=== PATIENT | female | born 1950 | race Caucasian/White ===

== ENCOUNTER 2017-09-22 19:57 | Emergency (ER) | payer MEDICARE, MEDICAID ==
[~2017-09-22] VITALS: Ht 162.6 cm; Wt 71.4 kg
[~2017-09-22 19:57] MED LIST: AMLO10TA PO; ASPI-1264 PO; ATOR20TA66 PO; COU7.5T PO; CYCL-145 PO; CYCL1DRO EACHEYE; DOCU100C40 PO; DOCU100C41 PO; ENOX80SY7 SUBCUT; GABA800T PO; HYDR-565 PO; IRBE150T51 PO; LACT1CAP65 PO; MULT-342 PO; OMEP-50 PO
[2017-09-22] MEDS ORDERED: amLODIPine 5mg tablet PO ONE ×2 (20:35→21:45)
[2017-09-22 20:49] LABS: ALANINE AMINOTRANSFERASE 16 U/L (12-78); ALBUMIN 3.9 G/DL (3.4-5.0); ALKALINE PHOSPHATASE 170 IU/L (46-116); ANION GAP 11 (8-16); ASPARTATE AMINO TRANSFERASE 15 U/L (10-37); BILIRUBIN,TOTAL 0.4 MG/DL (0.1-1.0); BLOOD UREA NITROGEN 19 MG/DL (7-18); BUN/CREATININE RATIO 20.4 (6.6-38.0); CALCIUM 9.1 MG/DL (8.5-10.1); CHLORIDE 104 MMOL/L (99-107); CREATININE 0.93 MG/DL (0.40-0.90); GLUCOSE 121 MG/DL (70-104); POTASSIUM 3.7 MMOL/L (3.5-5.1); SODIUM 138 MMOL/L (135-145); TOTAL CARBON DIOXIDE 23.2 MMOL/L (24-32); TOTAL PROTEIN 7.7 G/DL (6.4-8.2); eGFR 61 ML/MIN
[2017-09-22 21:04] LABS: BASOPHILS % (AUTO) 0.4 % (0-1); EOSINOPHILS # (AUTO) 0.2 X10'3 (0-0.9); EOSINOPHILS % (AUTO) 2.7 % (0-6); HEMATOCRIT 44.1 % (35.0-45.0); HEMOGLOBIN 15.3 g/dl (12.0-16.0); LYMPHOCYTES # (AUTO) 1.3 X10'3 (1.1-4.8); LYMPHOCYTES % (AUTO) 19.4 % (21-51); MEAN CORPUSCULAR HEMOGLOBIN 31.2 PG (27.0-31.0); MEAN CORPUSCULAR HGB CONC 34.6 % (33.0-36.5); MEAN CORPUSCULAR VOLUME 90.3 FL (78-98); MEAN PLATELET VOLUME 7.9 FL (7.4-10.4); MONOCYTES # (AUTO) 0.6 X10'3 (0-0.9); MONOCYTES % (AUTO) 8.2 % (2-12); NEUTROPHILS # (AUTO) 4.8 X10'3 (1.8-7.7); NEUTROPHILS % (AUTO) 69.3 % (42-75); PLATELET COUNT 314 X10'3 (140-440); RED BLOOD COUNT 4.88 X10'6 (4.20-5.60); RED CELL DISTRIBUTION WIDTH 12.9 % (11.5-14.5); WHITE BLOOD COUNT 6.9 X10'3 (4.5-11.0)
[2017-09-22] MEDS ORDERED: AMLO10TA4 PO (21:44)
[2017-09-22 22:03] VITALS: BP 160/76
[2017-09-22] MEDS ORDERED: hyDRALAzine 10mg tablet PO SCH (22:30)
== END 2017-09-22 22:46 | disposition home or self-care (01) ==
LOC: ER 19:58
DX: I10 Essential (primary) hypertension (principal); J44.9 Chronic obstructive pulmonary disease, unspecified; K21.9 Gastro-esophageal reflux disease without esophagitis; M19.90 Unspecified osteoarthritis, unspecified site; G89.29 Other chronic pain; Z86.718 Personal history of other venous thrombosis and embolism; Z86.73 Personal history of transient ischemic attack (TIA), and cerebral infarction without residual deficits; Z90.49 Acquired absence of other specified parts of digestive tract; Z60.2 Problems related to living alone; Z98.890 Other specified postprocedural states; Z88.2 Allergy status to sulfonamides; Z79.82 Long term (current) use of aspirin; Z79.899 Other long term (current) drug therapy
CPT/HCPCS: 36415; 71045; 80053; 83880; 84484; 85025; 93005; 99285

== ENCOUNTER 2021-01-04 07:33 | Inpatient (IN) | payer MEDICARE, OTHER ==
[~2021-01-04] VITALS: Ht 157.5 cm; Wt 66.4 kg
[~2021-01-04 07:33] MED LIST changes: -AMLO10TA PO; -ASPI-1264 PO; -ATOR20TA66 PO; +ATOR40TA72 PO; +CLON1PAT16 TOP; -COU7.5T PO; -CYCL-145 PO; -CYCL1DRO EACHEYE; -DOCU100C40 PO; -DOCU100C41 PO; -ENOX80SY7 SUBCUT; -GABA800T PO; +HYDR-4070 PO; -HYDR-565 PO; -IRBE150T51 PO; -LACT1CAP65 PO; +METO200T49 PO; +MINO2.5T19 PO; +MONT10TA32 PO; -MULT-342 PO; +NOR5T PO; -OMEP-50 PO; +PANT40TA54 PO; +PRED20TA PO; +SUCR1TAB34 PO; +[UNRECOGNIZED DRUG - OTHER] PO
[2021-01-04] MEDS ORDERED: normal saline 1000ml 1,000 ML IV ONE (07:55)
[2021-01-04] MEDS ORDERED: morphine 4 MG/ML inj SYRINge IV ONE ×2 (07:55→12:00)
[2021-01-04] MEDS ORDERED: ondansetron/PF 4mg/2ml inj IV ONE (07:55)
[2021-01-04 07:57] LABS: BASOPHILS % (AUTO) 0.7 % (0-1); EOSINOPHILS # (AUTO) 0.1 X10'3 (0-0.9); EOSINOPHILS % (AUTO) 2.9 % (0-6); HEMATOCRIT 22.7 % (35.0-45.0); HEMOGLOBIN 7.6 g/dl (12.0-16.0); LYMPHOCYTES # (AUTO) 0.4 X10'3 (1.1-4.8); LYMPHOCYTES % (AUTO) 9.9 % (21-51); MEAN CORPUSCULAR HEMOGLOBIN 29.2 PG (27.0-31.0); MEAN CORPUSCULAR HGB CONC 33.4 g/dL (33.0-36.5); MEAN CORPUSCULAR VOLUME 87.4 FL (78-98); MEAN PLATELET VOLUME 7.3 FL (7.4-10.4); MONOCYTES # (AUTO) 0.6 X10'3 (0-0.9); MONOCYTES % (AUTO) 14.9 % (2-12); NEUTROPHILS # (AUTO) 2.8 X10'3 (1.8-7.7); NEUTROPHILS % (AUTO) 71.6 % (42-75); PLATELET COUNT 388 X10'3 (140-440); WHITE BLOOD COUNT 3.9 X10'3 (4.5-11.0)
[2021-01-04 08:19] LABS: ALANINE AMINOTRANSFERASE 12 U/L (12-78); ALBUMIN 2.6 G/DL (3.4-5.0); ALBUMIN/GLOBULIN RATIO 0.8 (1.1-1.5); ALKALINE PHOSPHATASE 113 IU/L (46-116); ANION GAP 9 (8-16); ASPARTATE AMINO TRANSFERASE 16 U/L (10-37); BILIRUBIN,TOTAL 0.5 MG/DL (0.1-1.0); BLOOD UREA NITROGEN 23 MG/DL (7-18); BUN/CREATININE RATIO 12.4 (6.6-38.0); CALCIUM 7.8 MG/DL (8.5-10.1); CHLORIDE 109 MMOL/L (99-107); CREATININE 1.85 MG/DL (0.40-0.90); GLUCOSE 96 MG/DL (70-104); POTASSIUM 3.1 MMOL/L (3.5-5.1); SODIUM 143 MMOL/L (135-145); TOTAL CARBON DIOXIDE 24.8 MMOL/L (24-32); TOTAL PROTEIN 5.9 G/DL (6.4-8.2); eGFR 27 ML/MIN
[2021-01-04 08:23] LABS: LIPASE 185 U/L (73-393); TROPONIN I 0.08 NG/ML (0.0-0.05)
[2021-01-04 08:35] LABS: CLARITY,URINE SLIGHTLY CLOUDY (Clear); COLOR,URINE YELLOW (Yellow); GLUCOSE, URINE NEGATIVE (Neg); KETONES,URINE NEGATIVE (Neg); LEUKOCYTE ESTERASE ,URINE NEGATIVE (Neg); NITRITES, URINE NEGATIVE (Neg); OCCULT BLOOD,URINE NEGATIVE (Neg); PH,URINE 6.5 (4.8-8.0); PROTEIN,URINE 100 mg/dl (Neg); UROBILINOGEN,URINE 0.2 E.U/dL (0.2-1.0)
[2021-01-04] MEDS ORDERED: pantoprazole 40 MG vial IV ONE (08:40)
[2021-01-04] MEDS ORDERED: famotidine/PF 10 mg/ml inj IV ONE (08:40)
[2021-01-04] MEDS ORDERED: LIDOcaine Viscous 15ml cup MM ONE (08:45)
[2021-01-04] MEDS ORDERED: mag hydrox/Alum hydrox/simeth 30ml oral suspension PO ONE (08:45)
[2021-01-04 08:59] LABS: UA COLLECTION TYPE STRAIGHT CATH
[2021-01-04 09:50] LABS: BACTERIA,URINE FEW /HPF (Neg)
[2021-01-04 09:51] LABS: RBC,URINE 0-2 /HPF (0-2); SQUAMOUS EPITHELIAL CELL,UR MODERATE /LPF (FEW); WBC,URINE 0-4 /HPF (0-4)
[2021-01-04] MEDS ORDERED: labetalol 20mg/4ml (5mg/ml) syringe IV ONE (10:35)
[2021-01-04] MEDS ORDERED: furosemide 10 MG/1 ML 10ml inj IV ONE (11:00)
[2021-01-04] MEDS ORDERED: hyDRALAzine 10mg tablet PO ONE (11:20)
[2021-01-04] MEDS ORDERED: minoxidil 2.5mg tablet PO ONE (11:20)
[2021-01-04] MEDS ORDERED: potassium Cl 20 mEq SR tablet PO STA (12:08)
[2021-01-04] MEDS ORDERED: hydrALAZINE 20mg/ml inj. IV ONE (12:10)
--- NOTE | 2021-01-04 12:31 | NUR ---
PURE WICK PLACED AT THIS TIME FOR PATIENT COMFORT/CONVENIENCE.
[2021-01-04] MEDS ORDERED: SERT-433 PO (13:04)
[2021-01-04] MEDS ORDERED: SUCR1TAB PO (13:04)
[2021-01-04] MEDS ORDERED: LEVO50TA8 PO (13:04)
[2021-01-04] MEDS ORDERED: MONT10TA32 PO (13:04)
[2021-01-04] MEDS ORDERED: PANT-47 PO (13:04)
[2021-01-04] MEDS ORDERED: magnesium Cl slow-release 64mg tablet PO PRN (14:15)
[2021-01-04] MEDS ORDERED: bisacodyl 10mg suppository rectal RC PRN (14:15)
[2021-01-04] MEDS ORDERED: magnesium 4gm in 100ml NS 100 ML IV PRN (14:15)
[2021-01-04] MEDS ORDERED: acetaminophen 650mg rectal suppository RC PRN (14:15)
[2021-01-04] MEDS ORDERED: potassium Cl 20 mEq SR tablet PO PRN (14:15)
[2021-01-04] MEDS ORDERED: ondansetron/PF 4mg/2ml inj IV PRN (14:15)
[2021-01-04] MEDS: normal saline 1000ml 1,000 ML IV SCH (14:15)
[2021-01-04] MEDS ORDERED: magnesium 2GM in 50ml NS 50 ML IV PRN (14:15)
[2021-01-04] MEDS ORDERED: potassium Cl 40MEQ/1/2NS 520ml 520 ML IV PRN ×2 (14:15)
[2021-01-04] MEDS ORDERED: acetaminophen 325mg tablet PO PRN ×2 (14:15)
[2021-01-04] MEDS ORDERED: magnesium hydroxide 30ml (MOM) UD suspension PO PRN (14:15)
[2021-01-04] MEDS ORDERED: mag hydrox/Alum hydrox/simeth 30ml oral suspension PO PRN (14:15)
[2021-01-04] MEDS ORDERED: HYDROcodone/acetaminophen 10/325mg tab PO PRN (14:15)
[2021-01-04 14:46] LABS: HEMOGLOBIN A1C 4.5 % (4.5-6.2)
[2021-01-04] MEDS: ipratropium/albuterol 3ml nebule NEB SCH ×3 (15:00→23:00)
[2021-01-04] MEDS: hydrALAZINE 20mg/ml inj. IV PRN ×3 (16:42→20:15)
[2021-01-04] MEDS: sucralfate 1 gm tablet PO SCH ×2 (17:22→20:08)
[2021-01-04] MEDS: hydrALAZINE 25 MG tablet PO SCH (17:22)
[2021-01-04] MEDS ORDERED: NEO/5DRO7 EACHEYE (18:33)
--- NOTE | 2021-01-04 18:51 | NUR ---
PT SITTING UP IN BED EATING
[2021-01-04] MEDS: K and/or MAG REPLACEMENT MC SCH (20:00)
[2021-01-04] MEDS: pantoprazole 40 MG vial IV SCH (20:00)
[2021-01-04] MEDS: minoxidil 2.5mg tablet PO SCH ×2 (20:00→22:18)
[2021-01-04] MEDS: docusate sod 100mg capsule PO SCH (20:06)
[2021-01-04] MEDS: furosemide 40mg/4ml inj IV SCH (20:08)
[2021-01-04] MEDS: heparin, porcine 5000 units/ml vial SQ SCH (20:14)
[2021-01-05] VITALS (14 sets, daily range): BP systolic 114–200; BP diastolic 49–88
--- NOTE | 2021-01-05 01:00 | NUR ---
PT REQUESTING TO USE BEDSIDE COMMODE. SHE IS ASSISTED UP WITH NO BOWEL MOVEMENT, PUREWICK OUT AND REPLACED. PT BACK INTO BED IN POSITION OF COMFORT.
[2021-01-05] MEDS: hydrALAZINE 25 MG tablet PO SCH ×5 (01:22→20:42)
[2021-01-05] MEDS: ipratropium/albuterol 3ml nebule NEB SCH ×7 (03:00→23:14)
[2021-01-05 03:40] LABS: BASOPHILS % (AUTO) 0.5 % (0-1); EOSINOPHILS # (AUTO) 0.1 X10'3 (0-0.9); EOSINOPHILS % (AUTO) 2.3 % (0-6); HEMOGLOBIN 7.1 g/dl (12.0-16.0); LYMPHOCYTES # (AUTO) 0.4 X10'3 (1.1-4.8); LYMPHOCYTES % (AUTO) 10.5 % (21-51); MEAN CORPUSCULAR HEMOGLOBIN 29.4 PG (27.0-31.0); MEAN CORPUSCULAR HGB CONC 33.1 g/dL (33.0-36.5); MEAN CORPUSCULAR VOLUME 88.8 FL (78-98); MEAN PLATELET VOLUME 7.4 FL (7.4-10.4); MONOCYTES # (AUTO) 0.6 X10'3 (0-0.9); MONOCYTES % (AUTO) 16.4 % (2-12); NEUTROPHILS # (AUTO) 2.4 X10'3 (1.8-7.7); NEUTROPHILS % (AUTO) 70.3 % (42-75); PLATELET COUNT 364 X10'3 (140-440); RED BLOOD COUNT 2.42 X10'6 (4.20-5.60); RED CELL DISTRIBUTION WIDTH 17.3 % (11.5-14.5); WHITE BLOOD COUNT 3.4 X10'3 (4.5-11.0)
[2021-01-05 03:44] LABS: HEMATOCRIT 21.5 % (35.0-45.0)
[2021-01-05 04:05] LABS: ALANINE AMINOTRANSFERASE 15 U/L (12-78); ALBUMIN 2.4 G/DL (3.4-5.0); ALBUMIN/GLOBULIN RATIO 0.8 (1.1-1.5); ALKALINE PHOSPHATASE 125 IU/L (46-116); ANION GAP 11 (8-16); ASPARTATE AMINO TRANSFERASE 17 U/L (10-37); BILIRUBIN,TOTAL 0.4 MG/DL (0.1-1.0); BLOOD UREA NITROGEN 18 MG/DL (7-18); BUN/CREATININE RATIO 11.2 (6.6-38.0); CALCIUM 7.4 MG/DL (8.5-10.1); CHLORIDE 107 MMOL/L (99-107); CHOLESTEROL 128 MG/DL (0-200); CREATININE 1.61 MG/DL (0.40-0.90); GLUCOSE 91 MG/DL (70-104); HDL CHOLESTEROL 43 MG/DL (35-60); LDL CHOLESTEROL 67 MG/DL (50-100); MAGNESIUM 1.8 MG/DL (1.5-2.4); PHOSPHORUS 2.8 MG/DL (2.3-4.5); POTASSIUM 3.2 MMOL/L (3.5-5.1); SODIUM 145 MMOL/L (135-145); TOTAL CARBON DIOXIDE 27.5 MMOL/L (24-32); TOTAL PROTEIN 5.5 G/DL (6.4-8.2); TRIGLYCERIDES 106 MG/DL (20-135); eGFR 32 ML/MIN
[2021-01-05] MEDS: HYDROcodone/acetaminophen 5mg/325mg tablet PO PRN (04:20)
[2021-01-05] MEDS: morphine 2 MG/ML inj. syringe IV PRN ×4 (04:20→21:00)
[2021-01-05] MEDS: levoTHYROXINE 25mcg tablet PO SCH (07:33)
[2021-01-05] MEDS ORDERED: pantoprazole 40mg Tablet.DR PO SCH (08:00)
[2021-01-05] MEDS: montelukast 10mg tablet PO SCH (08:00)
[2021-01-05] MEDS: atorvastatin 20mg tablet PO SCH (08:00)
[2021-01-05] MEDS: heparin, porcine 5000 units/ml vial SQ SCH (08:00)
[2021-01-05] MEDS: K and/or MAG REPLACEMENT MC SCH ×2 (08:00→20:43)
[2021-01-05] MEDS: minoxidil 2.5mg tablet PO SCH ×2 (08:00→20:42)
[2021-01-05] MEDS: docusate sod 100mg capsule PO SCH ×2 (08:00→20:43)
[2021-01-05] MEDS: pantoprazole 40 MG vial IV SCH (08:55)
[2021-01-05] MEDS: furosemide 40mg/4ml inj IV SCH ×2 (08:55→20:42)
[2021-01-05] MEDS: sertraline 50mg tablet PO SCH (08:56)
[2021-01-05] MEDS: sucralfate 1 gm tablet PO SCH ×4 (08:57→20:42)
[2021-01-05] MEDS: diphenhydrAMINE 25mg capsule PO PRN ×2 (09:00→20:43)
[2021-01-05] MEDS: potassium Cl 20 mEq SR tablet PO PRN ×3 (09:00→20:50)
[2021-01-05] MEDS: pantoprazole 40MG/NS 100ML BAG 100 ML IV SCH ×3 (11:48→20:43)
[2021-01-05] MEDS: metoprolol succinate 25mg (24-HOUR) SR. Tablet PO SCH (14:05)
[2021-01-05] MEDS ORDERED: fentaNYL/PF 50MCG/1 ML 2ML syringe ONE (15:14)
[2021-01-05] MEDS ORDERED: MIDAZolam 1 MG/ML 5ML VIAL ONE (15:15)
[2021-01-05] MEDS ORDERED: LIDOcaine Viscous 15ml cup ONE (15:15)
[2021-01-05] MEDS: hydrALAZINE 20mg/ml inj. IV PRN (17:23)
[2021-01-05] MEDS ORDERED: sincalide inj 1.3 MCG in normal saline 50ml IV soln 50 ML IV ONE (17:25)
--- NOTE | 2021-01-05 17:34 | NUR ---
PAGER ID: [phone] MESSAGE: Re: NainDeborah. Room: [facility]. Nuc Med can't do HIDA scan until Sunday due to shortage of injections. -Christofer [facility] #[id number] -Dr. Trivedi paged concerning Orders.
--- NOTE | 2021-01-05 18:30 | NUR ---
Patient in room PCU 3014. I have received report from Christofer GENAO at bedside and had the opportunity to ask questions and assume patient care.
--- NOTE | 2021-01-05 18:37 | NUR ---
Problems reprioritized. Patient report given, questions answered & plan of care reviewed with Rani GENAO.
[2021-01-05 20:52] LABS: MEAN CORPUSCULAR HEMOGLOBIN 29.7 PG (27.0-31.0); MEAN CORPUSCULAR HGB CONC 33.6 g/dL (33.0-36.5); MEAN CORPUSCULAR VOLUME 88.4 FL (78-98); MEAN PLATELET VOLUME 7.6 FL (7.4-10.4); PLATELET COUNT 405 X10'3 (140-440); RED BLOOD COUNT 3.05 X10'6 (4.20-5.60); RED CELL DISTRIBUTION WIDTH 16.5 % (11.5-14.5); WHITE BLOOD COUNT 4.3 X10'3 (4.5-11.0)
[2021-01-06] VITALS (7 sets, daily range): BP systolic 123–184; BP diastolic 50–79
[2021-01-06] MEDS: ipratropium/albuterol 3ml nebule NEB SCH ×6 (02:07→23:00)
[2021-01-06] MEDS: pantoprazole 40MG/NS 100ML BAG 100 ML IV SCH ×2 (02:18→07:48)
[2021-01-06 06:10] LABS: BASOPHILS % (AUTO) 0.4 % (0-1); EOSINOPHILS # (AUTO) 0.1 X10'3 (0-0.9); EOSINOPHILS % (AUTO) 1.7 % (0-6); HEMATOCRIT 26.5 % (35.0-45.0); LYMPHOCYTES # (AUTO) 0.4 X10'3 (1.1-4.8); LYMPHOCYTES % (AUTO) 9.2 % (21-51); MEAN CORPUSCULAR VOLUME 88.4 FL (78-98); MEAN PLATELET VOLUME 7.2 FL (7.4-10.4); MONOCYTES # (AUTO) 0.7 X10'3 (0-0.9); MONOCYTES % (AUTO) 16.2 % (2-12); NEUTROPHILS # (AUTO) 3.1 X10'3 (1.8-7.7); NEUTROPHILS % (AUTO) 72.5 % (42-75); PLATELET COUNT 410 X10'3 (140-440); RED BLOOD COUNT 2.99 X10'6 (4.20-5.60); RED CELL DISTRIBUTION WIDTH 17.2 % (11.5-14.5); WHITE BLOOD COUNT 4.3 X10'3 (4.5-11.0)
--- NOTE | 2021-01-06 06:19 | NUR ---
Problems reprioritized. Patient report given, questions answered & plan of care reviewed with Valorie GENAO at bedside.
[2021-01-06 06:35] LABS: ALANINE AMINOTRANSFERASE 14 U/L (12-78); ALBUMIN 2.7 G/DL (3.4-5.0); ALBUMIN/GLOBULIN RATIO 0.8 (1.1-1.5); ALKALINE PHOSPHATASE 136 IU/L (46-116); ANION GAP 8 (8-16); ASPARTATE AMINO TRANSFERASE 13 U/L (10-37); BILIRUBIN,TOTAL 0.5 MG/DL (0.1-1.0); BLOOD UREA NITROGEN 22 MG/DL (7-18); BUN/CREATININE RATIO 12.5 (6.6-38.0); CALCIUM 8.4 MG/DL (8.5-10.1); CHLORIDE 103 MMOL/L (99-107); CREATININE 1.76 MG/DL (0.40-0.90); GLUCOSE 98 MG/DL (70-104); MAGNESIUM 1.6 MG/DL (1.5-2.4); PHOSPHORUS 2.3 MG/DL (2.3-4.5); POTASSIUM 3.6 MMOL/L (3.5-5.1); SODIUM 141 MMOL/L (135-145); TOTAL CARBON DIOXIDE 29.8 MMOL/L (24-32); TOTAL PROTEIN 5.9 G/DL (6.4-8.2); eGFR 29 ML/MIN
[2021-01-06] MEDS: levoTHYROXINE 25mcg tablet PO SCH (07:32)
[2021-01-06] MEDS: hydrALAZINE 25 MG tablet PO SCH ×4 (07:33→20:42)
[2021-01-06] MEDS: minoxidil 2.5mg tablet PO SCH ×2 (07:34→20:42)
[2021-01-06] MEDS: metoprolol succinate 25mg (24-HOUR) SR. Tablet PO SCH (07:34)
[2021-01-06] MEDS: sucralfate 1 gm tablet PO SCH ×4 (07:34→20:43)
[2021-01-06] MEDS: sertraline 50mg tablet PO SCH (07:34)
[2021-01-06] MEDS: atorvastatin 20mg tablet PO SCH (07:34)
[2021-01-06] MEDS: montelukast 10mg tablet PO SCH (07:34)
[2021-01-06] MEDS: docusate sod 100mg capsule PO SCH ×2 (07:34→20:43)
[2021-01-06] MEDS: furosemide 40mg/4ml inj IV SCH (07:37)
[2021-01-06] MEDS: K and/or MAG REPLACEMENT MC SCH ×2 (08:00→20:00)
[2021-01-06] MEDS: azithromycin/NS 500mg/250ml 250 ML IV SCH (10:34)
[2021-01-06] MEDS: HYDROcodone/acetaminophen 5mg/325mg tablet PO PRN (11:37)
[2021-01-06 12:00] LABS: GLUCOSE,BODY FLUID 124 MG/DL; LDH,BODY FLUID 64 U/L
[2021-01-06 12:44] LABS: BFAPPEAR CLEAR
[2021-01-06 12:45] LABS: BF WBC COUNT 98 /CU MM (0-1000); BFCOLOR YELLOW; BFVOLUME 60 ML
[2021-01-06 12:46] LABS: BF RBC COUNT 294 /CU MM; LYMPHOCYTES,BODY FLUID 72 %; MONOCYTES,BODY FLUID 25 %; NEUTROPHILS,BODY FLUID 3 %
[2021-01-06 13:00] LABS: TOTAL PROTEIN,BODY FLUID 594.4 G/DL
[2021-01-06 13:05] LABS: BFSOURCE PLEURAL FLD
--- NOTE | 2021-01-06 13:50 | NUR ---
Nutrition Consult "Pt/family education": Pt admit w/ abdominal pain and melena w/ prior hx GIB as well as peptic ulcer per EMR. Pt no hx DM A1C 4.5 WNL, lipid panel WNL this admit, and PO 100% first documented heart healthy meal last night per EMR. No nutrition intervention or reason for education at this time. Will remain available and monitor for nutrition intervention needs this admit. Addendum: 01/06/21 at [address] Amended: Links added.
[2021-01-06] MEDS ORDERED: heparin sodium, porcine/PF 100unit/ml 5ML syringe IV ONE (13:55)
[2021-01-06] MEDS: morphine 2 MG/ML inj. syringe IV PRN ×2 (17:24→23:18)
--- NOTE | 2021-01-06 18:17 | NUR ---
Problems reprioritized. Patient report given, questions answered & plan of care reviewed with Lavinia GNEAO.
--- NOTE | 2021-01-06 18:40 | NUR ---
Patient in room PCU 3014. I have received report from Kira GENAO and had the opportunity to ask questions and assume patient care.
[2021-01-06] MEDS: pantoprazole 40 MG vial IV SCH (20:43)
[2021-01-06] MEDS: normal saline 1000ml 1,000 ML IV SCH (20:43)
[2021-01-06] MEDS: diphenhydrAMINE 25mg capsule PO PRN (20:48)
[2021-01-07 02:00] VITALS: BP 152/46
[2021-01-07] MEDS: ipratropium/albuterol 3ml nebule NEB SCH ×4 (03:00→14:58)
[2021-01-07] MEDS: morphine 2 MG/ML inj. syringe IV PRN (04:20)
[2021-01-07 06:00] VITALS: BP 119/67
--- NOTE | 2021-01-07 06:25 | NUR ---
Problems reprioritized. Patient report given, questions answered & plan of care reviewed with Kira GENAO.
[2021-01-07 07:21] LABS: BASOPHILS % (AUTO) 0.4 % (0-1); HEMATOCRIT 25.9 % (35.0-45.0); HEMOGLOBIN 8.8 g/dl (12.0-16.0); LYMPHOCYTES # (AUTO) 0.4 X10'3 (1.1-4.8); LYMPHOCYTES % (AUTO) 9.5 % (21-51); MEAN CORPUSCULAR HEMOGLOBIN 29.2 PG (27.0-31.0); MEAN CORPUSCULAR HGB CONC 33.8 g/dL (33.0-36.5); MEAN CORPUSCULAR VOLUME 86.2 FL (78-98); MEAN PLATELET VOLUME 7.3 FL (7.4-10.4); MONOCYTES # (AUTO) 0.8 X10'3 (0-0.9); MONOCYTES % (AUTO) 17.7 % (2-12); NEUTROPHILS # (AUTO) 3.2 X10'3 (1.8-7.7); NEUTROPHILS % (AUTO) 71.4 % (42-75); PLATELET COUNT 396 X10'3 (140-440); RED CELL DISTRIBUTION WIDTH 16.6 % (11.5-14.5); WHITE BLOOD COUNT 4.5 X10'3 (4.5-11.0)
[2021-01-07] MEDS: azithromycin/NS 500mg/250ml 250 ML IV SCH (07:47)
[2021-01-07] MEDS: metoprolol succinate 25mg (24-HOUR) SR. Tablet PO SCH (07:54)
[2021-01-07] MEDS: docusate sod 100mg capsule PO SCH (07:54)
[2021-01-07] MEDS: levoTHYROXINE 25mcg tablet PO SCH (07:54)
[2021-01-07] MEDS: sertraline 50mg tablet PO SCH (07:54)
[2021-01-07] MEDS: sucralfate 1 gm tablet PO SCH ×2 (07:54→13:44)
[2021-01-07] MEDS: hydrALAZINE 25 MG tablet PO SCH ×2 (07:54→13:44)
[2021-01-07] MEDS: atorvastatin 20mg tablet PO SCH (07:54)
[2021-01-07] MEDS: montelukast 10mg tablet PO SCH (07:54)
[2021-01-07] MEDS: pantoprazole 40 MG vial IV SCH (07:54)
[2021-01-07] MEDS: minoxidil 2.5mg tablet PO SCH (07:54)
[2021-01-07] MEDS ORDERED: furosemide 20 MG/2 ML vial IV SCH (08:00)
[2021-01-07] MEDS: K and/or MAG REPLACEMENT MC SCH (08:00)
[2021-01-07 08:03] LABS: ALANINE AMINOTRANSFERASE 11 U/L (12-78); ALBUMIN 2.4 G/DL (3.4-5.0); ALBUMIN/GLOBULIN RATIO 0.8 (1.1-1.5); ALKALINE PHOSPHATASE 118 IU/L (46-116); ANION GAP 9 (8-16); ASPARTATE AMINO TRANSFERASE 14 U/L (10-37); BILIRUBIN,TOTAL 0.5 MG/DL (0.1-1.0); BLOOD UREA NITROGEN 22 MG/DL (7-18); BUN/CREATININE RATIO 11.9 (6.6-38.0); CHLORIDE 104 MMOL/L (99-107); CREATININE 1.85 MG/DL (0.40-0.90); GLUCOSE 84 MG/DL (70-104); LACTATE DEHYDROGENASE 454 U/L (81-234); MAGNESIUM 1.7 MG/DL (1.5-2.4); PHOSPHORUS 2.3 MG/DL (2.3-4.5); SODIUM 142 MMOL/L (135-145); TOTAL PROTEIN 5.3 G/DL (6.4-8.2); eGFR 27 ML/MIN
[2021-01-07 08:14] LABS: ANISOCYTOSIS 1+; MICROCYTOSIS 1+; PLATELET ESTIMATE NORMAL
--- NOTE | 2021-01-07 08:14 | NUR ---
Page to Dr. Trivedi [id number] Nain- Potassium 3.0- Will replace per protocol. Kira [phone]
[2021-01-07 08:15] LABS: POIKILOCYTOSIS FEW; POLYCHROMASIA 1+
[2021-01-07] MEDS ORDERED: PANT40TA54 PO (09:46)
[2021-01-07] MEDS ORDERED: ALBU8.5H17 INH (09:46)
[2021-01-07] MEDS ORDERED: AZIT500T9 PO (09:46)
[2021-01-07] MEDS ORDERED: morphine 2 MG/ML inj. syringe IV ONE (11:35)
[2021-01-07 15:00] VITALS: BP 139/46
--- NOTE | 2021-01-07 17:24 | NUR ---
Patient stable for discharge. PIV removed with catheter intact x2. Telemetry removed. Discharge instructions given to patient and daughter and both state understanding. All personal belongings with patient. Patient transferred off unit via wheelchair to daughter's car.
[2021-01-08] MEDS ORDERED: azithromycin 250mg tablet PO SCH (08:00)
== END 2021-01-07 17:33 | disposition home health service (06) | DRG 377 ==
LOC: ER 07:33 → ED HOLD 14:24 → PCU 3S 01-05 08:05
PROVIDERS: ADMIT Family Medicine; ATTEND Family Medicine
PROC: 0DB68ZX Excision of Stomach, Via Natural or Artificial Opening Endoscopic, Diagnostic (ICD-10-PCS; principal; 2021-01-05)
PROC: 30233N1 Transfusion of Nonautologous Red Blood Cells into Peripheral Vein, Percutaneous Approach (ICD-10-PCS; 2021-01-05)
PROC: 0W9B3ZZ Drainage of Left Pleural Cavity, Percutaneous Approach (ICD-10-PCS; 2021-01-06)
PROC: 0W993ZZ Drainage of Right Pleural Cavity, Percutaneous Approach (ICD-10-PCS; 2021-01-06)
PROC: C713YZZ Planar Nuclear Medicine Imaging of Blood using Other Radionuclide (ICD-10-PCS; 2021-01-06)
PROC: CF1C1ZZ Planar Nuclear Medicine Imaging of Hepatobiliary System, All using Technetium 99m (Tc-99m) (ICD-10-PCS; 2021-01-07)
DX: K25.4 Chronic or unspecified gastric ulcer with hemorrhage (principal); I50.33 Acute on chronic diastolic (congestive) heart failure; I21.A1 Myocardial infarction type 2; I16.1 Hypertensive emergency; I13.0 Hypertensive heart and chronic kidney disease with heart failure and stage 1 through stage 4 chronic kidney disease, or unspecified chronic kidney disease; J91.8 Pleural effusion in other conditions classified elsewhere; J44.0 Chronic obstructive pulmonary disease with (acute) lower respiratory infection; N18.9 Chronic kidney disease, unspecified; D64.9 Anemia, unspecified; E03.9 Hypothyroidism, unspecified; E78.5 Hyperlipidemia, unspecified; F32.9 Major depressive disorder, single episode, unspecified; I25.10 Atherosclerotic heart disease of native coronary artery without angina pectoris; K21.9 Gastro-esophageal reflux disease without esophagitis; M10.9 Gout, unspecified; M79.7 Fibromyalgia; G89.29 Other chronic pain; M19.90 Unspecified osteoarthritis, unspecified site; M54.9 Dorsalgia, unspecified; Z60.2 Problems related to living alone; I27.81 Cor pulmonale (chronic); R19.5 Other fecal abnormalities; E87.6 Hypokalemia; I27.20 Pulmonary hypertension, unspecified; Z20.822 Contact with and (suspected) exposure to COVID-19; Z79.01 Long term (current) use of anticoagulants; Z79.890 Hormone replacement therapy; Z79.899 Other long term (current) drug therapy; Z80.3 Family history of malignant neoplasm of breast; Z86.718 Personal history of other venous thrombosis and embolism; Z86.73 Personal history of transient ischemic attack (TIA), and cerebral infarction without residual deficits; Z87.01 Personal history of pneumonia (recurrent); Z88.2 Allergy status to sulfonamides; Z90.49 Acquired absence of other specified parts of digestive tract; Z95.0 Presence of cardiac pacemaker; Z95.1 Presence of aortocoronary bypass graft; Z88.8 Allergy status to other drugs, medicaments and biological substances; Z99.81 Dependence on supplemental oxygen
CPT/HCPCS: 32555; 36415; 36430; 43239; 71250; 74176; 76770; 78227; 78278; 80053; 80061; 81001; 82945; 83036; 83615; 83690; 83735; 83880; 83986; 84100; 84145; 84157; 84443; 84484; 85008; 85025; 85027; 86885; 86900; 86901; 86920; 87070; 87081; 87635; 88108; 88305; 88341; 88342; 89051; 92508; 92616; 93308; 94640; 94760; 96361; 96374; 96375; 96376; 97161; 97530; 99152; 99285; A4620; A9537; A9560; C9113; C9803; G0378; J0360; J0456; J1644; J1940; J2250; J2270; J2405; J3010; J3480; J3490; J7030; J7040; P9016; Q0163

== ENCOUNTER 2023-04-02 17:12 | Emergency (ER) | payer MEDICARE, OTHER ==
[~2023-04-02] VITALS: Ht 157.5 cm; Wt 70.9 kg
[~2023-04-02 17:12] MED LIST changes: +ALBU8.5H17 INH; +AZIT500T9 PO; +LEVO50TA8 PO; +MONT-40 PO; -MONT10TA32 PO; +NEO/5DRO7 EACHEYE; -NOR5T PO; -PRED20TA PO; +SERT-433 PO; +SUCR1TAB PO; -SUCR1TAB34 PO; -[UNRECOGNIZED DRUG - OTHER] PO
[2023-04-02 17:14] VITALS: BP 142/69; PULSE 61; TEMP 98; O2SAT 92
[2023-04-02] MEDS ORDERED: HYDR-3965 PO (20:08)
[2023-04-02] MEDS ORDERED: HYDROcodone/acetaminophen 5mg/325mg tablet PO ONE (20:10)
[2023-04-02 20:40] VITALS: RESP 17
== END 2023-04-02 20:50 | disposition home or self-care (01) ==
LOC: ER 17:13
DX: S29.012A Strain of muscle and tendon of back wall of thorax, initial encounter (principal); X58.XXXA Exposure to other specified factors, initial encounter; Y93.89 Activity, other specified; Y92.89 Other specified places as the place of occurrence of the external cause; Y99.8 Other external cause status
CPT/HCPCS: 71101; 99283

== ENCOUNTER 2023-08-31 23:13 | Emergency (ER) | payer MEDICARE, OTHER ==
[~2023-08-31] VITALS: Ht 154.9 cm; Wt 76.4 kg
[~2023-08-31 23:13] MED LIST changes: -HYDR-4070 PO; +HYDR50TA46 PO; +METO200T37 PO; -METO200T49 PO
[2023-08-31 23:31] VITALS: BP 238/90
[2023-09-01 00:23] LABS: EOSINOPHILS # (AUTO) 0.3 X10'3 (0-0.9)
[2023-09-01 00:28] LABS: BASOPHILS # (AUTO) 0.1 X10'3 (0-0.2); BASOPHILS % (AUTO) 1.1 % (0-1); EOSINOPHILS % (AUTO) 3.9 % (0-6); HEMATOCRIT 35.7 % (35.0-45.0); HEMOGLOBIN 12.1 g/dl (12.0-16.0); LYMPHOCYTES # (AUTO) 0.7 X10'3 (1.1-4.8); LYMPHOCYTES % (AUTO) 10.6 % (21-51); MEAN CORPUSCULAR HEMOGLOBIN 30.9 PG (27.0-31.0); MEAN CORPUSCULAR HGB CONC 33.8 g/dL (33.0-36.5); MEAN CORPUSCULAR VOLUME 91.5 FL (78-98); MEAN PLATELET VOLUME 8.2 FL (7.4-10.4); MONOCYTES # (AUTO) 0.8 X10'3 (0-0.9); MONOCYTES % (AUTO) 12.8 % (2-12); NEUTROPHILS # (AUTO) 4.6 X10'3 (1.8-7.7); NEUTROPHILS % (AUTO) 71.6 % (42-75); PLATELET COUNT 255 X10'3 (140-440); RED CELL DISTRIBUTION WIDTH 16.1 % (11.5-14.5); WHITE BLOOD COUNT 6.4 X10'3 (4.5-11.0)
[2023-09-01 00:31] LABS: ALBUMIN 3.4 G/DL (3.4-5.0); ANION GAP 8 (8-16); BLOOD UREA NITROGEN 33 MG/DL (7-18); BUN/CREATININE RATIO 16.4 (10.0-20.0); CALCIUM 8.5 MG/DL (8.5-10.1); CHLORIDE 105 MMOL/L (99-107); CREATININE 2.01 MG/DL (0.40-0.90); GLUCOSE 97 MG/DL (70-104); POTASSIUM 3.6 MMOL/L (3.5-5.1); PRO BRAIN NATRIURETIC PEPTIDE 4777 PG/ML (0-125); SODIUM 140 MMOL/L (135-145); TOTAL CARBON DIOXIDE 27.2 MMOL/L (24-32); eCRCL 19 ML/MIN; eGFR 24 ML/MIN
[2023-09-01] MEDS: acetaminophen 325mg tablet PO ONE (01:27)
[2023-09-01] MEDS: LORazepam 0.5 MG tablet PO ONE (01:27)
[2023-09-01] MEDS: HYDROcodone/acetaminophen 10/325mg tab PO ONE (01:28)
[2023-09-01] MEDS: LIDOcaine 5% patch TP ONE (01:29)
[2023-09-01] MEDS: ondansetron 4mg rapidly disintigrating tab PO ONE (01:30)
[2023-09-01 01:51] VITALS: TEMP 100.6
[2023-09-01] MEDS ORDERED: OXYC-658 PO ×2 (02:30→02:33)
[2023-09-01] MEDS ORDERED: LIDO700A32 TOP (02:30)
[2023-09-01] MEDS ORDERED: DOCU-171 PO (02:33)
[2023-09-01] MEDS: morphine 4 MG/ML inj SYRINge IM ONE (02:38)
[2023-09-01] MEDS: aspirin 325mg tablet PO ONE (02:39)
[2023-09-01 02:48] VITALS: PULSE 60; RESP 16; O2SAT 100
== END 2023-09-01 02:50 | disposition home or self-care (01) ==
LOC: ER 23:13
DX: R07.81 Pleurodynia (principal); I11.0 Hypertensive heart disease with heart failure; I50.9 Heart failure, unspecified; K21.9 Gastro-esophageal reflux disease without esophagitis; N18.9 Chronic kidney disease, unspecified; M19.90 Unspecified osteoarthritis, unspecified site; G89.29 Other chronic pain; M54.9 Dorsalgia, unspecified; M79.7 Fibromyalgia; Z86.718 Personal history of other venous thrombosis and embolism; Z86.73 Personal history of transient ischemic attack (TIA), and cerebral infarction without residual deficits; Z95.1 Presence of aortocoronary bypass graft; Z88.2 Allergy status to sulfonamides; Z91.018 Allergy to other foods; Z91.048 Other nonmedicinal substance allergy status
CPT/HCPCS: 36415; 71045; 80048; 83880; 84484; 85025; 93005; 96372; 99285; J2270

== ENCOUNTER 2024-05-08 14:14 | Emergency (ER) | payer MEDICARE, OTHER ==
[~2024-05-08 14:14] MED LIST changes: +DOCU-171 PO; +LIDO700A32 TOP
[2024-05-08 15:37] LABS: BASOPHILS # (AUTO) 0.1 X10'3 (0-0.2); BASOPHILS % (AUTO) 0.9 % (0-1); EOSINOPHILS # (AUTO) 0.2 X10'3 (0-0.9); EOSINOPHILS % (AUTO) 3.1 % (0-6); HEMATOCRIT 42.8 % (35.0-45.0); HEMOGLOBIN 14.3 g/dl (12.0-16.0); LYMPHOCYTES # (AUTO) 0.6 X10'3 (1.1-4.8); LYMPHOCYTES % (AUTO) 8.4 % (21-51); MEAN CORPUSCULAR HEMOGLOBIN 31.1 PG (27.0-31.0); MEAN CORPUSCULAR HGB CONC 33.4 g/dL (33.0-36.5); MEAN CORPUSCULAR VOLUME 93.1 FL (78-98); MEAN PLATELET VOLUME 8.1 FL (7.4-10.4); MONOCYTES # (AUTO) 0.8 X10'3 (0-0.9); MONOCYTES % (AUTO) 10.5 % (2-12); NEUTROPHILS # (AUTO) 5.7 X10'3 (1.8-7.7); NEUTROPHILS % (AUTO) 77.1 % (42-75); PLATELET COUNT 323 X10'3 (140-440); RED CELL DISTRIBUTION WIDTH 16.5 % (11.5-14.5); WHITE BLOOD COUNT 7.4 X10'3 (4.5-11.0)
[2024-05-08 16:22] LABS: BILIRUBIN,URINE NEGATIVE (Neg); CLARITY,URINE CLOUDY (Clear); COLOR,URINE YELLOW (Yellow); GLUCOSE, URINE NEGATIVE (Neg); KETONES,URINE NEGATIVE (Neg); LEUKOCYTE ESTERASE ,URINE SMALL (Neg); NITRITES, URINE NEGATIVE (Neg); OCCULT BLOOD,URINE NEGATIVE (Neg); PROTEIN,URINE 100 mg/dl (Neg); UROBILINOGEN,URINE 0.2 E.U/dL (0.2-1.0)
[2024-05-08 16:27] LABS: ALANINE AMINOTRANSFERASE 12 U/L (12-78); ALBUMIN 3.8 G/DL (3.4-5.0); ALKALINE PHOSPHATASE 113 IU/L (46-116); ANION GAP 16 (8-16); ASPARTATE AMINO TRANSFERASE 17 U/L (10-37); BILIRUBIN,TOTAL 0.6 MG/DL (0.1-1.0); BLOOD UREA NITROGEN 34 MG/DL (7-18); CALCIUM 9.2 MG/DL (8.5-10.1); CHLORIDE 106 MMOL/L (99-107); CREATININE 2.62 MG/DL (0.40-0.90); GLUCOSE 96 MG/DL (70-104); LIPASE 70 U/L (16-77); POTASSIUM 3.5 MMOL/L (3.5-5.1); SODIUM 138 MMOL/L (135-145); TOTAL CARBON DIOXIDE 16.5 MMOL/L (24-32); TOTAL PROTEIN 7.8 G/DL (6.4-8.2); eGFR 18 ML/MIN
[2024-05-08 16:27] LABS: UA COLLECTION TYPE NON-SPECIFIED
[2024-05-08 16:29] LABS: BACTERIA,URINE 2+ /HPF (Neg); MUCUS STRANDS FEW /LPF (Neg); RBC,URINE 0-2 /HPF (0-2); RENAL CELLS, URINE FEW /HPF; SQUAMOUS EPITHELIAL CELL,UR MODERATE /LPF (FEW); TRANSITIONAL EPI CELLS,URINE FEW /HPF
[2024-05-08] MEDS ORDERED: METR-159 PO ×2 (18:30→19:36)
[2024-05-08 19:10] VITALS: TEMP 98.5
[2024-05-08] MEDS: metroNIDAZOLE 500mg tablet PO ONE (19:22)
[2024-05-08 19:33] VITALS: BP 113/69; PULSE 68; RESP 18; O2SAT 100
[2024-05-09 08:10] LABS: C DIFF ANTIGEN NEGATIVE (NEGATIVE); C DIFF SPECIMEN=DIARRHEA? ACCEPTABLE; C DIFFICILE TOXINS A&B NEGATIVE (Neg)
== END 2024-05-08 19:39 | disposition home or self-care (01) ==
LOC: ER 14:14
DX: R19.7 Diarrhea, unspecified (principal); I13.0 Hypertensive heart and chronic kidney disease with heart failure and stage 1 through stage 4 chronic kidney disease, or unspecified chronic kidney disease; I50.9 Heart failure, unspecified; N18.9 Chronic kidney disease, unspecified; M19.90 Unspecified osteoarthritis, unspecified site; J44.9 Chronic obstructive pulmonary disease, unspecified; K21.9 Gastro-esophageal reflux disease without esophagitis; M79.7 Fibromyalgia; G89.29 Other chronic pain; M54.9 Dorsalgia, unspecified; Z86.73 Personal history of transient ischemic attack (TIA), and cerebral infarction without residual deficits; Z86.718 Personal history of other venous thrombosis and embolism; Z90.49 Acquired absence of other specified parts of digestive tract; Z95.1 Presence of aortocoronary bypass graft; Z88.2 Allergy status to sulfonamides; Z91.018 Allergy to other foods; Z79.899 Other long term (current) drug therapy; Z60.2 Problems related to living alone
CPT/HCPCS: 36415; 80053; 81001; 83690; 85025; 87088; 87324; 87449; 99285